=== PATIENT | female | born 1990 | race African-American/Black ===

== ENCOUNTER 2017-06-10 14:14 | Emergency (ER) | payer MEDICAID ==
[~2017-06-10] VITALS: Ht 162.6 cm; Wt 60.0 kg
[2017-06-10 16:20] VITALS: BP 127/63
== END 2017-06-10 17:17 | disposition home or self-care (01) ==
LOC: ER 14:32
DX: Z13.89 Encounter for screening for other disorder (principal); F90.9 Attention-deficit hyperactivity disorder, unspecified type; F32.9 Major depressive disorder, single episode, unspecified
CPT/HCPCS: 81025; 99283